=== PATIENT | female | born 1945 | race Caucasian/White ===

== ENCOUNTER 2022-06-05 15:21 | Emergency (ER) | payer MEDICARE ==
[~2022-06-05] VITALS: Ht 170.2 cm; Wt 72.6 kg
--- NOTE | 2022-06-05 15:50 | NUR ---
Dr Juarez at the bedside for MSE.
[2022-06-05] MEDS ORDERED: ONDANSETRON ODT 4 MG TAB.RAPDIS ONE (15:59)
[2022-06-05] MEDS ORDERED: MORPHINE SULFATE 2 MG/1 ML DISP.SYRIN ONE (16:00)
[2022-06-05] MEDS ORDERED: ONDANSETRON ODT 4 MG TAB.RAPDIS SL ONE (16:00)
[2022-06-05] MEDS ORDERED: CAPSAICIN 0.075% CREAM 60 GM TUBE TOP ONE (16:00)
[2022-06-05] MEDS ORDERED: MORPHINE SULFATE 2 MG/1 ML DISP.SYRIN IM ONE (16:00)
--- NOTE | 2022-06-05 16:20 | NUR ---
Patient discharged to home in stable condition. Written and verbal after care instructions given. Patient verbalizes understanding of instructions. Stressed follow up or return to ER for worsening s/s.
[2022-06-05 16:38] VITALS: BP 162/80
== END 2022-06-05 16:38 | disposition home or self-care (01) ==
LOC: ER 15:21
DX: M25.562 Pain in left knee (principal); M76.899 Other specified enthesopathies of unspecified lower limb, excluding foot; I25.10 Atherosclerotic heart disease of native coronary artery without angina pectoris; Z95.5 Presence of coronary angioplasty implant and graft; Z79.02 Long term (current) use of antithrombotics/antiplatelets; Z79.82 Long term (current) use of aspirin; M70.71 Other bursitis of hip, right hip
CPT/HCPCS: 99283; 96372; J2270; A4663; Q0162